=== PATIENT | female | born 1940 | race Caucasian/White ===

== ENCOUNTER 2019-12-27 13:29 | Observation (INO) | payer MEDICARE, OTHER ==
[2019-12-27 13:44] LABS: Glucose,Whole Blood 88 mg/dL (75-99)
[2019-12-27] MEDS ORDERED: SODIUM CHLORIDE 0.9% 1,000 ML IV STA (14:15)
--- NOTE | 2019-12-27 14:51 | CT ---
EXAMINATION TYPE: CT facial bones wo con DATE OF EXAM: 12/27/2019 COMPARISON: Pain HISTORY: Syncope and left-sided facial pain and injury CT DLP: 1026.6 mGycm Automated exposure control for dose reduction was used. TECHNIQUE: CT scan of the sinuses is performed without contrast, axial images are obtained, coronal r eformatted images are also reviewed. FINDINGS: There is diffuse soft tissue edema overlying the left orbit, maxillary sinus and zygomatic arch. No acute fracture. Large soft tissue hematoma measures at least 6 cm. Visualized intraorbital s tructures remain intact. Changes of mild chronic sinusitis noted. Multilevel degenerative disc disease of the cervical spine w ith facet arthropathy noted. IMPRESSION: 1. Large soft tissue hematoma overlying the left orbit and facial structures with no definite acute f racture.
--- NOTE | 2019-12-27 14:57 | CT ---
EXAMINATION TYPE: CT brain cspine wo con DATE OF EXAM: 12/27/2019 COMPARISON: None HISTORY: Syncope. Left sided facial injury. CT DLP: 1026.6 mGycm Automated exposure control for dose reduction was used. TECHNIQUE: CT scan of the head and cervical spine are performed without contrast. FINDINGS: There is a large soft tissue hematoma measuring at least 6 cm overlying the left facial b ones and orbits. Visualized orbits intact. Osseous structures intact. Generalized degenerative change seen with no evidence of acute intracranial hemorrhage or mass effect . Low-attenuation the white matter is nonspecific but most typical remote microvascular ischemia. Par tially empty sella turcica noted. Craniocervical junction maintained. Odontoid intact. Prevertebral soft tissue structures are within normal limits. There is multilevel fa cet arthropathy and degenerative disc disease. Canal stenosis C5-6 and C6-C7 with foraminal encroachm ent suspected. Granuloma calcified posterior margin right upper lobe incidentally noted subsegmental apical changes most typical atelectasis. Pleural-based thickening and apical pleural calcification no isaac which could be associated with asbestos related disease. Atherosclerotic change of the carotid ar teries are seen IMPRESSION: 1. There is no acute fracture or dislocation evident in the cervical spine. Multilevel severe degener ative disc disease and facet arthropathy with suspected foraminal encroachment and canal stenosis. Fo llow-up MRI as clinically warranted. 2. No acute intracranial hemorrhage, mass effect, or midline shift is seen. 3. Large soft tissue hematoma overlying the left orbit and facial bones. 4. Pleural thickening and calcification correlate for history of asbestos related disease.
[2019-12-27 15:19] LABS: Basophils % (A) 0 %; Eosinophils # (A) 0.1 k/uL (0-0.7); Eosinophils % (A) 2 %; HCT 44.3 % (34.0-46.0); HGB 14.3 gm/dL (11.4-16.0); Lymphocytes # (A) 0.8 k/uL (1.0-4.8); Lymphocytes % (A) 10 %; MCH 33.8 pg (25.0-35.0); MCHC 32.3 g/dL (31.0-37.0); MCV 104.6 fL (80.0-100.0); Macrocytosis Slight; Mean Platelet Volume 8.1; Monocytes # (A) 0.3 k/uL (0-1.0); Monocytes % (A) 3 %; Neutrophils # (A) 6.2 k/uL (1.3-7.7); Neutrophils % (A) 83 %; Platelet Count 212 k/uL (150-450); RBC 4.24 m/uL (3.80-5.40); RDW 13.2 % (11.5-15.5); WBC 7.4 k/uL (3.8-10.6)
[2019-12-27 15:22] LABS: ALT 13 U/L (4-34); AST 32 U/L (14-36); African American GFR (CKD) >90 (>60 ml/min/1.73 sqM); Albumin 4.6 g/dL (3.5-5.0); Alkaline Phosphatase 68 U/L (38-126); Anion Gap 12 mmol/L; Blood Urea Nitrogen 12 mg/dL (7-17); Calcium 9.3 mg/dL (8.4-10.2); Carbon Dioxide 27 mmol/L (22-30); Chloride 99 mmol/L (98-107); Glucose 94 mg/dL (74-99); Non-African American GFR(CKD) 83 (>60 ml/min/1.73 sqM); Potassium 3.6 mmol/L (3.5-5.1); Sodium 138 mmol/L (137-145); Total Bilirubin 1.2 mg/dL (0.2-1.3)
[2019-12-27 15:29] LABS: Partial Thromboplastin Time 22.2 sec (22.0-30.0); Prothrombin Time 10.2 sec (9.0-12.0)
[2019-12-27] MEDS ORDERED: DIPH,PERTUS(ACELL)TETVAC-LF 0.5 ML VIAL IM ONE (15:37)
[2019-12-27] MEDS ORDERED: LIDOCAINE 1% INJ 10MG/ML (20 ML MDV) SQ ONE (15:37)
--- NOTE | 2019-12-27 15:41 | ED ---
General Adult HPI - General Chief complaint: Fall Stated complaint: Fall Time Seen by Provider: 12/27/19 14:00 Source: patient, EMS, RN notes reviewed Mode of arrival: EMS Limitations: no limitations - History of Present Illness Initial comments: 79-year-old female with a past medical history of thyroid cancer, hypertension presents to the emergency department for a chief complaint of syncope and head injury. Patient states that she has had diarrhea for the past couple days. States that she has not been eating much today because she is trying to lose weight. Patient states she was sleeping upstairs when she heard her daughter knocked on front door. States she jumped out of bed and ran down the stairs. Patient states she then passed out. She did not have any lightheadedness preceding this that she remembers. She did hit her head and face on the floor. Patient denies any weakness in any extremities. She is alert and oriented. Tetanus up-to-date. Patient has no other complaints at this time including shortness of breath, chest pain, abdominal pain, nausea or vomiting, headache, or visual changes. - Related Data Allergies Allergy/AdvReac Type Severity Reaction Status Date / Time No Known Allergies Allergy Verified 12/27/19 13:40 Review of Systems ROS Statement: Those systems with pertinent positive or pertinent negative responses have been documented in the HPI. ROS Other: All systems not noted in ROS Statement are negative. Past Medical History Past Medical History: Cancer, Hypertension Additional Past Medical History / Comment(s): Thyroid Ca history. History of Any Multi-Drug Resistant Organisms: None Reported Past Surgical History: Breast Surgery Additional Past Surgical History / Comment(s): Breast biopsy, hemicolectomy, thyroidectomy. Smoking Status: Never smoker Past Alcohol Use History: Occasional Past Drug Use History: None Reported General Exam Limitations: no limitations General appearance: alert, in no apparent distress Head exam: Present: atraumatic, normocephalic, normal inspection Eye exam: Present: normal appearance, PERRL, EOMI. Absent: scleral icterus, conjunctival injection, periorbital swelling ENT exam: Present: normal exam, mucous membranes moist, other (Patient has a large contusion noted inferior to the left orbit with laceration to the left hill and small abrasion to the lip.) Neck exam: Present: normal inspection, full ROM. Absent: tenderness, meningismus, lymphadenopathy Respiratory exam: Present: normal lung sounds bilaterally. Absent: respiratory distress, wheezes, rales, rhonchi, stridor Cardiovascular Exam: Present: regular rate, normal rhythm, normal heart sounds. Absent: systolic murmur, diastolic murmur, rubs, gallop, clicks GI/Abdominal exam: Present: soft, normal bowel sounds. Absent: distended, tenderness, guarding, rebound, rigid Neurological exam: Present: alert, oriented X3, normal gait, other (gcs 15) Expanded Patient oriented to: Present: person, place, time Speech: Present: fluid speech Cranial nerves: EOM's Intact: Normal, Gag Reflex: Normal, Tongue Deviation: Normal, Facial Sensation: Normal Cerebellar function: Finger to Nose: Normal Upper motor neuron: William Neglect: Normal, Pronator Drift: Normal Sensory exam: Upper Extremity Light Touch: Normal, Upper Extremity Pin Prick: Normal, Lower Extremity Light Touch: Normal, Lower Extremity Pin Prick: Normal Motor strength exam: RUE: 5, LUE: 5, RLE: 5, LLE: 5 Eye Response: (4) open spontaneously Motor Response: (6) obeys commands Verbal Response: (5) oriented [place] Total: 15 Psychiatric exam: Present: normal affect, normal mood Course Vital Signs 12/27/19 12/27/19 12/27/19 13:32 15:21 17:13 Temperature 98.8 F Pulse Rate 76 83 72 Respiratory 16 16 16 Rate Blood Pressure 147/81 150/73 115/63 O2 Sat by Pulse 97 98 96 Oximetry EKG Findings - EKG Comments: EKG Findings:: Normal sinus rhythm, ventricular rate 70, DC interval 188, QTc 464 Medical Decision Making - Medical Decision Making HPI and physical exam as documented. Patient does have large hematoma to the left side of the face over the maxillary area. CT brain and C-spine shows no acute fracture or dislocation evident in the cervical spine. Multilevel severe degenerative disc disease and facet arthropathy with suspected foraminal encroachment. No acute intracranial hemorrhage, or midline shift. Large soft tissue hematoma overlying the left orbit and facial structures with no definite acute fracture. Bilateral intraocular pressures were obtained: 10 OD, 12 OS. Globe appears normal. Patient has not had cardiac workup or any evaluation in 30 years for cardiac disease. Given patient is 79-year-old she will be admitted for observation. - Lab Data Result diagrams: 12/27/19 15:02 12/27/19 15:02 Lab Results 12/27/19 12/27/19 12/27/19 Range/Units 13:43 15:02 15:02 WBC 7.4 (3.8-10.6) k/uL RBC 4.24 (3.80-5.40) m/uL Hgb 14.3 (11.4-16.0) gm/dL Hct 44.3 (34.0-46.0) % MCV 104.6 H (80.0-100.0) fL MCH 33.8 (25.0-35.0) pg MCHC 32.3 (31.0-37.0) g/dL RDW 13.2 (11.5-15.5) % Plt Count 212 (150-450) k/uL Neutrophils % 83 % Lymphocytes % 10 % Monocytes % 3 % Eosinophils % 2 % Basophils % 0 % Neutrophils # 6.2 (1.3-7.7) k/uL Lymphocytes # 0.8 L (1.0-4.8) k/uL Monocytes # 0.3 (0-1.0) k/uL Eosinophils # 0.1 (0-0.7) k/uL Basophils # 0.0 (0-0.2) k/uL Macrocytosis Slight PT 10.2 (9.0-12.0) sec INR 1.0 (<1.2) APTT 22.2 (22.0-30.0) sec Sodium (137-145) mmol/L Potassium (3.5-5.1) mmol/L Chloride (98-107) mmol/L Carbon Dioxide (22-30) mmol/L Anion Gap mmol/L BUN (7-17) mg/dL Creatinine (0.52-1.04) mg/dL Est GFR (CKD-EPI)AfAm (>60 ml/min/1.73 sqM) Est GFR (CKD-EPI)NonAf (>60 ml/min/1.73 sqM) Glucose (74-99) mg/dL POC Glucose (mg/dL) 88 (75-99) mg/dL POC Glu Fancy Wire Drawer ID Yudy Horvath Calcium (8.4-10.2) mg/dL Magnesium (1.6-2.3) mg/dL Total Bilirubin (0.2-1.3) mg/dL AST (14-36) U/L ALT (4-34) U/L Alkaline Phosphatase (38-126) U/L Troponin I (0.000-0.034) ng/mL Total Protein (6.3-8.2) g/dL Albumin (3.5-5.0) g/dL Urine Color Urine Appearance (Clear) Urine pH (5.0-8.0) Ur Specific [place] (1.001-1.035) Urine Protein (Negative) Urine Glucose (UA) (Negative) Urine Ketones (Negative) Urine Blood (Negative) Urine Nitrite (Negative) Urine Bilirubin (Negative) Urine Urobilinogen (<2.0) mg/dL Ur Leukocyte Esterase (Negative) Urine RBC (0-5) /hpf Urine WBC (0-5) /hpf Ur Squamous Epith Cells (0-4) /hpf Hyaline Casts (0-2) /lpf Urine Mucus (None) /hpf 12/27/19 12/27/19 12/27/19 Range/Units 15:02 15:02 15:03 WBC (3.8-10.6) k/uL RBC (3.80-5.40) m/uL Hgb (11.4-16.0) gm/dL Hct (34.0-46.0) % MCV (80.0-100.0) fL MCH (25.0-35.0) pg MCHC (31.0-37.0) g/dL RDW (11.5-15.5) % Plt Count (150-450) k/uL Neutrophils % % Lymphocytes % % Monocytes % % Eosinophils % % Basophils % % Neutrophils # (1.3-7.7) k/uL Lymphocytes # (1.0-4.8) k/uL Monocytes # (0-1.0) k/uL Eosinophils # (0-0.7) k/uL Basophils # (0-0.2) k/uL Macrocytosis PT (9.0-12.0) sec INR (<1.2) APTT (22.0-30.0) sec Sodium 138 (137-145) mmol/L Potassium 3.6 (3.5-5.1) mmol/L Chloride 99 (98-107) mmol/L Carbon Dioxide 27 (22-30) mmol/L Anion Gap 12 mmol/L BUN 12 (7-17) mg/dL Creatinine 0.68 (0.52-1.04) mg/dL Est GFR (CKD-EPI)AfAm >90 (>60 ml/min/1.73 sqM) Est GFR (CKD-EPI)NonAf 83 (>60 ml/min/1.73 sqM) Glucose 94 (74-99) mg/dL POC Glucose (mg/dL) (75-99) mg/dL POC Glu Fancy Wire Drawer ID Calcium 9.3 (8.4-10.2) mg/dL Magnesium 2.0 (1.6-2.3) mg/dL Total Bilirubin 1.2 (0.2-1.3) mg/dL AST 32 (14-36) U/L ALT 13 (4-34) U/L Alkaline Phosphatase 68 (38-126) U/L Troponin I <0.012 (0.000-0.034) ng/mL Total Protein 8.0 (6.3-8.2) g/dL Albumin 4.6 (3.5-5.0) g/dL Urine Color Yellow Urine Appearance Clear (Clear) Urine pH 6.5 (5.0-8.0) Ur Specific [place] 1.014 (1.001-1.035) Urine Protein Negative (Negative) Urine Glucose (UA) Negative (Negative) Urine Ketones 2+ H (Negative) Urine Blood Negative (Negative) Urine Nitrite Negative (Negative) Urine Bilirubin Negative (Negative) Urine Urobilinogen <2.0 (<2.0) mg/dL Ur Leukocyte Esterase Moderate H (Negative) Urine RBC 2 (0-5) /hpf Urine WBC 3 (0-5) /hpf Ur Squamous Epith Cells 2 (0-4) /hpf Hyaline Casts 6 H (0-2) /lpf Urine Mucus Rare H (None) /hpf Disposition Clinical Impression: Syncope Disposition: ADMITTED IP TO THIS HOSP Condition: Fair Is patient prescribed a controlled substance at d/c from ED?: No Referrals: Nonstaff,Physician [Primary Care Provider] - 1-2 days Time of Disposition: 17:53
--- NOTE | 2019-12-27 15:57 | XR ---
EXAMINATION TYPE: XR chest 2V DATE OF EXAM: 12/27/2019 COMPARISON: None HISTORY: 79-year-old female with syncope TECHNIQUE: AP and lateral views FINDINGS: Heart upper limits of normal in size. Aorta and pulmonary vasculature within normal limits. Mild inte rstitial prominence and hyperinflation suggests underlying COPD. Some subtle nodularity noted in the right upper lung. No consolidation or pleural effusion. IMPRESSION: COPD. No acute process seen. There is some subtle nodularity in the right upper lung for which a none mergent contrast enhanced CT of the chest is recommended to exclude underlying pulmonary nodules.
[2019-12-27 16:14] LABS: Appearance,Urine Clear (Clear); Bilirubin,Urine Negative (Negative); Blood,Urine Negative (Negative); Color,Urine Yellow; Glucose,Urine (UA) Negative (Negative); Hyaline Casts,Urine 6 /lpf (0-2); Ketones,Urine 2+ (Negative); Leukocyte Esterase,Urine Moderate (Negative); Mucus,Urine Rare /hpf; Nitrite,Urine Negative (Negative); PH, Urine 6.5 (5.0-8.0); Protein,Urine Negative (Negative); RBC,Urine 2 /hpf (0-5); Specific Gravity,Urine 1.014 (1.001-1.035); Squamous Epithelial Cell,Urine 2 /hpf (0-4); Urobilinogen,Urine <2.0 mg/dL (<2.0); WBC,Urine 3 /hpf (0-5)
[2019-12-27] MEDS ORDERED: NALOXONE 0.4 MG/ML 1 ML VIAL IV PRN (17:48)
[2019-12-27] MEDS ORDERED: SODIUM CHLORIDE 0.9% 1,000 ML IV SCH (18:00)
[2019-12-27] MEDS ORDERED: ATENOLOL 25 MG TAB PO SCH (22:45)
--- NOTE | 2019-12-28 03:20 | P.HPIM ---
History of Present Illness H&P Date: 12/27/19 Chief Complaint: syncope 79 year old female , with hypertension , controlled with medications, hypothyroid , with histroy of thyroid cancer. foster comes in after an episode of syncope and falling hurting her face. she was sleeping when heard knocking on the main door, and she jumped from her bed in a macias to open the door , and suddenly fell on the stairs hit her face and head and passed out briefly. she denies any preceeding symptoms of dizziness or palpitations, and she felt fine after she regained consciousness. but was bleeding from her face and was brought to the hospital for evaluation she was found to have large left face hematoma and a laceration on her chin. CT of the brain showed no acute pathology except for the hematoma . her blood work was unremarkable she denies any recent travel or falling episodes. she denies any recent changes in her medications. she reports that she had a bad night , the night before the incident as she had multiple episodes of diarrhea (about 4 times non bloody ) and had poor PO intake. her who lives with her, is asymptomatic . she reports that she has been practicing good hygienic practices and self isolating at home no recent travel no eating out, no sick contact. she denies otherwise any abd pain , [place] or vomiting, denies loss of taste or smell sensation . denies any rashes. denies any URI symptoms . in the ED her initial workup otherwise was unremarkable , patient admitted for close monitoring overnight and IVF hydration Review of Systems Pertinent positives as noted in HPI. All other systems were reviewed and are negative Past Medical History Past Medical History: Cancer, Hypertension Additional Past Medical History / Comment(s): Thyroid Ca history. History of Any Multi-Drug Resistant Organisms: None Reported Past Surgical History: Breast Surgery Additional Past Surgical History / Comment(s): Breast biopsy, hemicolectomy, thyroidectomy. Past Anesthesia/Blood Transfusion Reactions: No Reported Reaction Past Psychological History: No Psychological Hx Reported Smoking Status: Never smoker Past Alcohol Use History: Occasional Past Drug Use History: None Reported - Past Family History Family Family Medical History: No Reported History Medications and Allergies Home Medications Medication Instructions Recorded Confirmed Type Atenolol 25 mg PO HS 12/27/19 12/27/19 History Atorvastatin [Lipitor] 10 mg PO HS 05/29/20 05/29/20 History Levothyroxine Sodium [Synthroid] 75 mcg PO DAILY 12/27/19 12/27/19 History Triamterene/Hydrochlorothiazid 1 each PO 12/27/19 History [Triamterene-Hctz 37.5-25 mg Tb] Allergies Allergy/AdvReac Type Severity Reaction Status Date / Time No Known Allergies Allergy Verified 12/27/19 21:13 Physical Exam Vitals: Vital Signs Temp Pulse Pulse Resp BP BP Pulse Ox 12/27/19 19:25 98.4 F 81 18 147/70 97 12/27/19 17:13 72 16 115/63 96 12/27/19 15:21 83 16 150/73 98 12/27/19 13:32 98.8 F 76 16 147/81 97 Intake and Output 12/27/19 12/27/19 12/27/19 06:59 14:59 22:59 Other: Voiding Method Toilet Weight 55.792 kg Constitutional: No acute distress, conversant, pleasant Eyes: Anicteric sclerae, moist conjunctiva, no lid-lag Pupils equal round reactive to light ENMT: NC/ ecchymosis and bruising with swelling of the left side of the face and ecchymosis over the infraorbital region 3 stitches over a laceration over the chin Oropharynx clear, no erythema, exudates Neck: Supple, FROM, no masses, or JVD No carotid bruits No thyromegaly Lungs: Clear to auscultation Clear to percussion Normal respiratory effort, no accessory muscle use Cardiovascular: Heart regular in rate and rhythm, No murmurs, gallops, or rubs No peripheral edema Abdominal: Soft Nontender, no guarding, rebound or rigidity Abdomen moving with respiration Normoactive bowel sounds No hepatomegaly, No splenomegaly No palpable mass No abdominal wall hernia noted Skin: Normal temperature, tone, texture, turgor No induration No subcutaneous nodules No rash, lesions No ulcers Extremities: No digital cyanosis No clubbing Pedal pulses intact and symmetrical Radial pulses intact and symmetrical No calf tenderness Psychiatric: Alert and oriented to person, place and time Appropriate affect fair judgement Neuro Muscles Strength 5/5 in all 4 extremities Sensation to light touch grossly present throughout Cranial nerves II-XII grossly intact No focal sensory deficits Lymphatics: no palpable cervical or supraclavicular , or inguinal lymph nodes Results CBC & Chem 7: 12/27/19 15:02 12/27/19 15:02 Labs: Abnormal Lab Results - Last 24 Hours (Table) 12/27/19 12/27/19 Range/Units 15:02 15:03 MCV 104.6 H (80.0-100.0) fL Lymphocytes # 0.8 L (1.0-4.8) k/uL Urine Ketones 2+ H (Negative) Ur Leukocyte Esterase Moderate H (Negative) Hyaline Casts 6 H (0-2) /lpf Urine Mucus Rare H (None) /hpf Thrombosis Risk Factor Assmnt - Choose All That Apply Any of the Below Risk Factors Present?: Yes Each Factor Represents 1 point: Varicose veins Other Risk Factors: Yes Each Risk Factor Represents 3 Points: Age 75 years or older Other congenital or acquired thrombophilia - If yes, enter type in comment: No Thrombosis Risk Factor Assessment Total Risk Factor Score: 4 Thrombosis Risk Factor Assessment Level: Moderate Risk Assessment and Plan Assessment: 79 year old female , with hypertension , controlled with medications, hypothyroid , with histroy of thyroid cancer. she had an episode of syncope at home , resulted in a fall hit her face and had a hematoma and laceration of the chin anticipated length of stay < 2 midnights syncope , rule out cardiac vs neuro causes, most likely secondary to dehydration with postrual hypotension IVF hydration neurochecks cardiac monitoring trend cardiac enzymes follow up renal function PT / OT hematoma of the face small laceration ovver the chin local wound care pain control chronic conditions hypertension , resume home meds hold diuretics hypothyroid , resume home meds DVT PPX , mechanical CODE STATUS:full code Discussed with: Patient, ER, RN Anticipated length of stay < than [address]: home A total of 75 minutes was spent on the care of this complex patient more than 50% of the time was spent in counseling and care coordination.
[2019-12-28 03:56] VITALS: PULSE 77
[2019-12-28] MEDS ORDERED: LEVOTHYROXINE 75 MCG TAB PO SCH (06:30)
[2019-12-28 08:04] VITALS: BP 110/57; RESP 16; TEMP 97.4
--- NOTE | 2019-12-28 12:35 | P.DS ---
Providers Date of admission: 12/27/19 18:53 Attending physician: Nya Muñoz DO Primary care physician: Physician Nonstaff - Discharge Diagnosis(es) (1) Syncope Current Visit: Yes Status: Acute Priority: High Onset Date: ~12/27/19 Hospital Course: 79-year-old female placed in observation after a syncopal episode at home. She had been suffering from diarrhea for the last few days, she jumped out of bed in a macias to open the door and suddenly fell and hit her head and lost consciousness for a few seconds. She sustained a hematoma on the left side of her face and the laceration of her chin. CT of the brain did not show any intracranial bleeding. Her blood work has been unremarkable. She received several liters of IV fluids, her blood pressure and heart rate have been normal over the last week for hours. Her diarrhea has almost resolved, she has had only one episode in the last 24 hours which is more firm, she has been ambulating in the room with no difficulty. She denies any dizziness, no lightheadedness, no headache, no changes in vision, no abdominal pain, no nausea or vomiting. She reports feeling "excellent" today and feels safe to go home under the care of her . She was instructed not to drive over the next few days, also recommended increasing her fluid intake until her diarrhea compl etely resolves. Triamterene/hydrochlorothiazide home medication has been discontinued for now, this may be resumed after her follow-up appointment with her PCP. she will continue take atenolol, levothyroxine, and atorvastatin. The patient will be discharged home in stable condition Assessment: Constitutional: No acute distress, conversant, pleasant Eyes: Pupils equal round reactive to light ENMT: NC/ ecchymosis and bruising with swelling of the left side of the face and ecchymosis over the infraorbital region 3 stitches over a laceration over the chin Neck: Supple, FROM, no masses, or JVD No carotid bruits No thyromegaly Lungs: Clear to auscultation Clear to percussion Normal respiratory effort, no accessory muscle use Cardiovascular: Heart regular in rate and rhythm, No murmurs, gallops, or rubs No peripheral edema Abdominal: Soft Nontender, no guarding, rebound or rigidity Abdomen moving with respiration Normoactive bowel sounds No hepatomegaly, No splenomegaly Skin: No subcutaneous nodules No rash, lesions No ulcers Extremities: No digital cyanosis No clubbing Pedal pulses intact and symmetrical Radial pulses intact and symmetrical No calf tenderness Psychiatric: Alert and oriented to person, place and time Appropriate affect Neuro Muscles Strength 5/5 in all 4 extremities Sensation to light touch grossly present throughout Cranial nerves II-XII grossly intact No focal sensory deficits Assessment and plan: # Syncope -Most likely secondary to postural hypotension in the setting of dehydration and diarrhea -No signs or symptoms that would suggest a cardiac or neurological cause -Vital signs stabilized with IV fluids -Triamterene/hydrochlorothiazide on hold, to be resumed after follow-up appointment with primary care doctor -Continue atenolol for now # Diarrhea secondary to gastritis -Resolved -No risk factors for C. diff colitis -Maintain adequate fluid intake Patient Condition at Discharge: Good Plan - Discharge Summary Discharge Rx Participant: No New Discharge Prescriptions: Continue Atorvastatin [Lipitor] 10 mg PO HS Levothyroxine Sodium [Synthroid] 75 mcg PO MOTUWETHFRSA Atenolol 25 mg PO HS Levothyroxine Sodium [Synthroid] 112.5 mcg PO ALVAREZ Discontinued Triamterene/Hydrochlorothiazid [Triamterene-Hctz 37.5-25 mg Tb] 1 each PO DAILY Discharge Medication List Atenolol 25 mg PO HS 12/27/19 [History] Atorvastatin [Lipitor] 10 mg PO HS 12/27/19 [History] Levothyroxine Sodium [Synthroid] 75 mcg PO MOTUWETHFRSA 12/27/19 [History] Levothyroxine Sodium [Synthroid] 112.5 mcg PO ALVAREZ 12/28/19 [History] Follow up Appointment(s)/Referral(s): Nonstaff,Physician [Primary Care Provider] - 1-2 days Patient Instructions/Handouts: Dehydration (DC), Syncope (DC) Activity/Diet/Wound Care/Special Instructions: Avoid driving for the next week Avoid sudden changes in posture. Allow up to 1 min before standing from supine/sleeping position Drink plenty of fluids, especially if hot weather or diarrhea worsens Triamterene/HCTZ has been stopped for now, this may be resumed by your primary care doctor after your follow up appointment Discharge Disposition: HOME SELF-CARE
[2019-12-28] MEDS ORDERED: ATORVASTATIN 10 MG TAB PO SCH (21:00)
== END 2019-12-28 13:05 | disposition home or self-care (01) ==
LOC: EC 13:29 → 1SOBS 18:53
PROVIDERS: ADMIT Internal Medicine; ATTEND Internal Medicine
DX: R55 Syncope and collapse (principal); E86.0 Dehydration; I95.1 Orthostatic hypotension; K29.70 Gastritis, unspecified, without bleeding; I10 Essential (primary) hypertension; E89.0 Postprocedural hypothyroidism; S05.12XA Contusion of eyeball and orbital tissues, left eye, initial encounter; S81.812A Laceration without foreign body, left lower leg, initial encounter; S01.81XA Laceration without foreign body of other part of head, initial encounter; I83.90 Asymptomatic varicose veins of unspecified lower extremity; Z85.850 Personal history of malignant neoplasm of thyroid; Z90.49 Acquired absence of other specified parts of digestive tract; W10.9XXA Fall (on) (from) unspecified stairs and steps, initial encounter; Z79.899 Other long term (current) drug therapy; Z79.890 Hormone replacement therapy; Y92.009 Unspecified place in unspecified non-institutional (private) residence as the place of occurrence of the external cause; Z03.818 Encounter for observation for suspected exposure to other biological agents ruled out
CPT/HCPCS: 96360; 99285; 36415; 93005; 80053; 83735; 84484 ×2; 85025; 85610; 85730; 81001; 71046; 72125; 70486; 70450; G0378 ×2; U0003; J2001